=== PATIENT | male | born 1955 | race Caucasian/White ===

== ENCOUNTER → 2016-07-27 | Outpatient (REF) ==
--- NOTE | 2016-07-27 15:36 | REP ---
PARTIAL LUMBAR SPINE, THREE VIEWS: HISTORY: Degenerative disc disease. COMPARISON: 12/21/2013. There is no acute fracture. There is an old fracture of the right 10th rib. The L1-2 through L5-S1 intervertebral discs are decreased in height consistent with disc degeneration. Osteophytes are present throughout the lumbar spine. There are 9 mm of grade 1 spondylolisthesis of L5 on S1. This is associated with L5 pars defects. 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 IMPRESSION: Degenerative change as described above. Signed by Dre Urbina MD 07/27/2016 03:37 P
== END | disposition home or self-care (01) ==
LOC: M SMT 13:30
PROVIDERS: ATTEND Internal Medicine
DX: Z02.71 Encounter for disability determination (principal)

== ENCOUNTER → 2022-11-05 | Outpatient (CLI) | LOC: M SOG 08:29 | PROVIDERS: ATTEND Physician Assistant | DX: M25.531 Pain in right wrist (principal) ==

== ENCOUNTER 2022-11-27 06:45 | Day surgery (SDC) | payer MEDICARE, OTHER ==
[~2022-11-27] VITALS: Ht 172.7 cm; Wt 94.3 kg
[~2022-11-27 06:45] MED LIST: ASPI81TA26 PO; ATEN50TA2 PO; CIDA500T2 PO; LOPI600T PO; METF500T13 PO; NOXI1TAB PO; OMEG10002 PO; tumeric PO
[2022-11-27] MEDS ORDERED: LR 1,000 ML IV SCH ×2 (07:25→10:15)
[2022-11-27] MEDS ORDERED: BUPIVACAINE HCL 0.25% 30ML VIAL As Ordered ONE (09:04)
[2022-11-27] MEDS ORDERED: ceFAZolin 2 GM/D5W 50 ML IV BAG As Ordered ONE (09:30)
[2022-11-27] MEDS ORDERED: ONDANSETRON 4MG 2ML VIAL As Ordered ONE (09:47)
[2022-11-27] MEDS ORDERED: METOCLOPRAMIDE INJ 10MG/2ML VIAL As Ordered ONE (09:47)
[2022-11-27] MEDS ORDERED: fentaNYL 100 MCG/2 ML INJECTION As Ordered ONE (09:47)
[2022-11-27] MEDS ORDERED: KETOROLAC 60MG 2ML VIAL As Ordered ONE (09:47)
[2022-11-27] MEDS ORDERED: LIDOCAINE 2% 100MG/5ML SDV (FOR ANES.) As Ordered ONE (09:47)
[2022-11-27] MEDS ORDERED: MIDAZOLAM INJ 2MG/2ML VIAL As Ordered ONE (09:47)
[2022-11-27] MEDS ORDERED: propofoL 200 MG/20 ML VIAL As Ordered ONE (09:47)
[2022-11-27] MEDS ORDERED: ONDANSETRON 4MG 2ML VIAL IV PRN (10:15)
[2022-11-27] MEDS ORDERED: oxyCODONE 5MG TAB PO PRN (10:15)
[2022-11-27] MEDS ORDERED: fentaNYL 100 MCG/2 ML INJECTION IV PRN (10:15)
[2022-11-27] MEDS ORDERED: HYDROMORPHONE HCL 0.5 MG/ 0.5 ML SYRINGE IV PRN (10:15)
[2022-11-27 11:58] VITALS: BP 135/84
== END 2022-11-27 12:00 | disposition home or self-care (01) ==
LOC: EDBD 06:45 → M SDC 06:45
PROVIDERS: ATTEND Orthopaedic Surgery Hand Surgery
DX: G56.01 Carpal tunnel syndrome, right upper limb (principal); E11.42 Type 2 diabetes mellitus with diabetic polyneuropathy; F17.220 Nicotine dependence, chewing tobacco, uncomplicated; Z79.899 Other long term (current) drug therapy; Z79.82 Long term (current) use of aspirin; Z79.84 Long term (current) use of oral hypoglycemic drugs
CPT/HCPCS: 29848; J0690; J1100; J1885; J2250; J2405; J2765; J3010